=== PATIENT | female | born 1995 | race Caucasian/White ===

== ENCOUNTER 2016-10-01 11:00 | Outpatient (RCR) | payer BC ==
--- NOTE | 2016-08-29 11:39 | PT/OT/ST INITIAL EVALUATION ---
Department of Health and Human Services Form Approved [facility] [employer] Financing Administration OMB No. [id number] PLAN OF CARE/ASSESSMENT FOR OUTPATIENT REHABILITATION (Complete for Initial Claims Only) 1. PATIENT'S NAME Mel Bustamante 2. ACC # [id number] 3. HICN NA 4. PROVIDER NO. [id number] 5. TYPE: OT 6. PRIOR HOSPITALIZATION NA 7. PRIMARY DX M65.4-radial styloid tenosynovitis (De Quervain) 8. TREATMENT DX Weakness, stiffness 9. ONSET DATE Approximately 3 years ago 10. REFERRAL DATE 08/15/2016 11. SOC. DATE 08/22/2016 12. TIME OF EVAL 3:00 p.m. to 4:03 p[address]YS[address]IAN Dr. Justa Sunshine 13. CHARGES/UNITS 30 evaluation- [id number] Low Complexity 10 ultrasound 18 manual therapy 14. G CODES NA 15. PRIOR LEVEL OF FUNCTION; PERTINENT HISTORY (Prior therapy results, reason for referral.) S: Reason for referral: The patient is a 20-year-old female referred by Dr. Justa Sunshine to address occupational concerns secondary to a diagnosis of De Quervain tenosynovitis. Description/mechanism of injury: The patient reports her left wrist has been popping frequently for the last 3 years. States it began hurting within the past year and a half when it would pop and when moving the wrist. The patient reports it continues to crack and pop frequently. The patient met with an orthopedic surgeon to discuss concerns. Completed x-ray testing with the physician recommending surgery. Pt completed De Quervain release surgery in April 2016. The patient reports having a soft cast for 2 weeks and transitioning to a forearm brace with thumb stablization. The patient currently is not wearing any type of brace. Following surgery, pt reports no relief in pain. Pt reports increased pain and stiffness with left wrist. Home set up/Prior level of function: The patient lives with her grandparents. Prior to onset, the patient was independent with all ADL and IADL tasks. Current functional performance: The patient reports some days it does not hurt as much, but other days when she moves her wrist the pain can be an 8/10. The patient reports difficulty with carrying her purse, pulling items, grasping items, texting, washing hair, pulling up pants. The patient reports occasionally wearing the brace, but the brace makes it stiff causing it to pop more. 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 Pt reports some difficulty with work tasks including bilateral activities. Pain level and location: 6/10 along radial styloid process of left wrist. Aggravating factors: Moving the wrist or moving too quickly. Relieving factors: Rest has helped to some extent. Diagnostic testing: X-ray testing completed. The patient reports not knowing the results of the x-rays. PMH (PT, OT, hospitalizations): Environmental allergies, depression, and bipolar disorder. Pt has completed previous physical therapy for hip concerns. Current medications: The patient currently takes Advil and ibuprofen for medication. No medication to complicate therapy. Personal health rating: Good. Patient's Goal: The patient's goals are to get her wrist to stop hurting and stop popping. 16. INITIAL ASSESSMENT/SAFETY PRECAUTIONS/MEDICAL COMPLICATIONS (Level of function at start of care. Be specific, use objective measures, list problems.) O: APPEARANCE AND OBSERVATION: The patient appeared to her initial occupational therapy evaluation this date. Upon observation the patient demonstrates a protruding radial styloid process of left wrist compared to right. With palpation, the patient reports tenderness along radial styloid process and mild tenderness along first dorsal compartment. The patient demonstrates a 1.5 cm scar, mildly raised, and light purple in color. Noted, when completing active range of motion movements, the patient was observed to have popping in her joints. Upon palpation of tendons, with the patient completing thumb abduction, the patient demonstrates rolling of extensor pollicis brevis, causing pain. AROM: With active movement of wrist, the patient reports increased pain with wrist movements at end range. Wrist extension- 3-4/10 pain, Wrist flexion 2/10 pain, radial deviation 5/10 pain and ulnar deviation 1/10 pain. With resistive thumb abduction, pt reports 5-6/10 pain, resistive wrist flexion 5/10 pain. 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 Pinch strength: 2-point pinch: left 6 pounds with 6/10 pain, right 8 pounds. 3-point pinch: left 7 pounds with 3/10 pain, right 14 pounds. Lateral pinch: left 12 pounds, right 14 pounds. SPECIAL TESTS: -Monse test was completed this date with patient demonstrating 6/10 pain with a pop. The patient reports this movement causes significant pain, indicating positive results of De Quervain's. -Hitchhikers test completed with patient reports 5/10 pain with resistive thumb extension. -CMC Grind Test- Negative -Mittal's Shift Test- Negative -Piano Ruby Test completed with noted difficulty mobilizing the ulnar and radial joints. QuickDASH: The patient was completed this date, which is a standardized assessment with a score of 38.63. A score of 0 indicates no difficulties or limitations with daily activities or leisure tasks. Palpation: The patient demonstrated moderate tenderness along first dorsal compartment and radial styloid process. Sensation: The patient reports occasional burning and tingling sensation when waking up. COMPLEXITY LEVEL: The patient presents with decreased strength, stiffness and decreased ability to handle, manipulate and carry everyday items with left hand. Pt presents with no co-morbidities affecting occupational performance. Required no modification or assistance during assessments, placing patient at a low complexity level. CONTRAINDICATIONS, PRECAUTIONS AND OBSTACLES TO DELIVERY OF CARE: None. INFORMED CONSENT: The OT discussed the OT diagnosis, prognosis, treatment plan, and expected outcome with the patient. The patient agreed to the OT plan of care this date. TODAY'S TREATMENT: Included education about occupational therapy and the occupational therapy process. Additionally discussed and educated on activity modifications and avoiding movements causing an increase in symptoms to allow for tendons to rest. Discussed use of superficial cold therapy and contrast baths to reduce inflammation. The therapist completed 3.0 MHz, 1.5 w/cm2, continuous ultrasound for 10 minutes along first dorsal compartment and radial side of forearm decrease pain level and promote healing. Soft tissue mobilization with the use of a tool to reduce restrictions for improved movement. Noted moderate grittiness along first dorsal compartment and radial styloid process. Completed Kinesiotaping for functional stabilization to keep thumb in a neutral position to decrease symptoms. Provided the patient with home exercise program. 17. INITIAL POC: (Specify procedures, modalities, short and group home goals) A: OT DIAGNOSIS: The patient presents with increased pain levels, stiffness, decreased strength and decreased ability to complete daily activities of carrying, handling and manipulating everyday items with left hand secondary to a diagnosis of De Quervain tenosynovitis. The patient would benefit from skilled occupational therapy for design and administration of therapeutic exercise and activities to decrease pain levels and improve occupational performance of left hand to return to all activities with no difficulty. PROBLEMS/IMPAIRMENTS/FUNCTIONAL LOSS: Include increased pain levels and decreased ability to handle, manipulate and carry everyday items, which impacts the patient's ability to complete all daily activities independently and relying on LUE for tasks. INTENDED OUTCOMES: Include decrease pain levels, improve movement and strength of left hand and wrist, and provide education on activity modifications to prevent onset of future symptoms. REHAB POTENTIAL/PROGNOSIS: The patient is expected to have a good prognosis with consistent attendance of therapy and completion of home exercise program and following therapist's recommendations. SHORT TERM GOALS X3 WEEKS: 1. The patient will verbalize and demonstrate compliance with home exercise program. 2. The patient will demonstrate ability to manipulate 8 out of 10 items using left hand with a report of 2/10 pain or less to increase independence with handling everyday items. PURCHASING/RECEIVING GOALS X6 WEEKS: 1. The patient will report a decrease in QuickDASH score of 15 to 20 points to indicate a meaningful change and increased independence with daily activities. 2. The patient will participate in a bilateral coordination task with demonstration of sufficient wrist movements to complete activity and report 1/10 pain or less to return to all activities independently. 3. The patient will verbalize and demonstrate carryover with activity modification techniques and report a decrease in symptoms during daily activities and work tasks. P: Plan to treat the patient 2 times a week for 6 weeks in order to address occupational concerns secondary to a diagnosis of De Quervain's. The treatment is to include modalities, ultrasound, iontophoresis, manual therapy, soft tissue mobilization, therapeutic exercise, active range of motion, passive range of motion, therapeutic activities, ADL/self-care, patient education/home exercise program and other treatments as indicated. 18. FREQUENCY 2 times a week 19. DURATION 6 weeks 20. FUNCTIONAL LEVEL (End of claim period) 21. PHYSICIAN SIGNATURE ? ON FILE OR ENTER HERE: 22. DATE: I certify the need for these services furnished under this plan of care and if for partial hospitalization. 23. CERTIFICATION FROM THROUGH [facility]-700
== END 2016-10-22 14:59 | disposition home or self-care (01) ==
LOC: OT 11:00
PROVIDERS: ATTEND Family Medicine
DX: M65.4 Radial styloid tenosynovitis [de Quervain] (principal)